=== PATIENT | female | born 1995 | race Caucasian/White ===

== ENCOUNTER → 2021-04-13 | Outpatient (CLI) | payer BC ==
[~2021-04-13] MED LIST: PREN-96 PO
[2021-04-13 11:18] LABS: Basophils # (auto) 0 10 ^3/uL (0-0.2); Basophils % (auto) 0.4 % (0.0-2.0); Eosinophils # (auto) 0.1 10 ^3/uL (0-0.8); Eosinophils % (auto) 0.7 % (0.0-7.0); Hematocrit 38.8 % (36.0-46.0); Hemoglobin 13.3 g/dL (12.2-16.2); Lymphocytes # (auto) 1.3 10 ^3/uL (0.4-5.4); Lymphocytes % (auto) 16.9 % (10.0-50.0); Mean Corpuscular Hemoglobin 32.1 pg (28.0-32.0); Mean Corpuscular Hgb Conc. 34.4 g/dL (32.0-36.0); Mean Corpuscular Volume 93.3 fL (80.0-100.0); Monocytes # (auto) 0.4 10 ^3/uL (0-1.3); Monocytes % (auto) 4.9 % (0.0-12.0); Neutrophils % (auto) 77.1 % (37.0-80.0); Platelet Count (auto) 256 10^3/uL (140-450); Red Blood Cells 4.15 10^6/uL (4.0-5.20); Red Cell Distribution Width 12.4 % (11.8-14.3); White Blood Cell 7.9 10^3/uL (4.4-10.8)
[2021-04-13 11:42] LABS: Alcohol, Urine < 3.0 mg/dL (0-10); Amphetamine Screen, Urine NEGATIVE (NEGATIVE); Barbiturate Scree,Urine NEGATIVE (NEGATIVE); Benzodiazephine Screen, Urine NEGATIVE (NEGATIVE); Cannabinoid Screen, Urine NEGATIVE (NEGATIVE); Cocaine Screen, Urine NEGATIVE (NEGATIVE); Opiate Scree,Urine NEGATIVE (NEGATIVE); Phencyclidine Screen, Urine NEGATIVE (NEGATIVE)
[2021-04-14 05:07] LABS: RPR Non Reactive (Non Reactive)
== END | disposition home or self-care (01) ==
LOC: LAB 10:34
PROVIDERS: ATTEND Obstetrics & Gynecology
DX: Z34.80 Encounter for supervision of other normal pregnancy, unspecified trimester (principal); Z31.430 Encounter of female for testing for genetic disease carrier status for procreative management; Z72.51 High risk heterosexual behavior; Z3A.00 Weeks of gestation of pregnancy not specified
CPT/HCPCS: 36415; 80307; 83036; 84112; 84144; 84702; 85025; 85049; 86592; 86703; 86765; 86850; 86900; 86901; 87086; 87340

== ENCOUNTER 2021-10-24 11:52 | Inpatient (IN) | payer BC ==
[~2021-10-24] VITALS: Ht 175.3 cm; Wt 103.4 kg
[2021-10-24] MEDS ORDERED: miSOPROStol 50 MCG per PRE-CUT 1/2 TAB PO PRN (22:00)
[2021-10-24] MEDS ORDERED: WITCH HAZEL-GLYCERIN PAD TOP PRN (22:00)
[2021-10-24] MEDS ORDERED: LIDOCAINE 2%HCL (LOCAL ANESTH.) INJ 20ML MDV IJ PRN (22:00)
[2021-10-24] MEDS ORDERED: BUTORPHANOL TARTRATE 2 MG/1 ML VIAL IV PRN ×2 (22:00)
[2021-10-24] MEDS ORDERED: DERMOPLAST 60ML BOTTLE TOP PRN (22:00)
[2021-10-24] MEDS ORDERED: PROMETHAZINE HCL 25 MG/ML 1ML IV PRN (22:00)
[2021-10-24] MEDS ORDERED: PHISODERM TOP SOLN 240ML BTL TOP PRN (22:00)
[2021-10-24 23:00] LABS: Basophils # (auto) 0 10 ^3/uL (0-0.2); Basophils % (auto) 0.3 % (0.0-2.0); Eosinophils # (auto) 0.1 10 ^3/uL (0-0.8); Eosinophils % (auto) 0.6 % (0.0-7.0); Hemoglobin 12.4 g/dL (12.2-16.2); Lymphocytes # (auto) 1.7 10 ^3/uL (0.4-5.4); Lymphocytes % (auto) 17.6 % (10.0-50.0); Mean Corpuscular Hemoglobin 31.9 pg (28.0-32.0); Mean Corpuscular Hgb Conc. 34.4 g/dL (32.0-36.0); Mean Corpuscular Volume 92.7 fL (80.0-100.0); Monocytes # (auto) 0.7 10 ^3/uL (0-1.3); Monocytes % (auto) 7.3 % (0.0-12.0); Neutrophils % (auto) 74.2 % (37.0-80.0); Nucleated Red Blood Cells % 0.1 %; Red Blood Cells 3.88 10^6/uL (4.0-5.20); Red Cell Distribution Width 13.9 % (11.8-14.3); White Blood Cell 9.5 10^3/uL (4.4-10.8)
[2021-10-24 23:06] LABS: Urine Blood Negative /uL (Negative); Urine Specific Gravity 1.039 (1.001-1.035)
[2021-10-24 23:07] LABS: Urine Bacteria FEW /hpf (None Seen); Urine Mucus FEW (None Seen); Urine WBC 1 /hpf (0 - 5)
[2021-10-24] MEDS: CLINDAMYCIN 900MG IV 50 ML IV SCH (23:09)
[2021-10-24 23:16] LABS: INR 0.9 (0.9-1.15); Partial Thromboplastin Time 24.7 sec (23.6-33.0)
[2021-10-24 23:23] LABS: Albumin 2.7 g/dL (3.4-5.0); Potassium 4.1 mmol/L (3.5-5.1)
[2021-10-24 23:24] LABS: Alcohol, Urine < 3.0 mg/dL (0-10); Amphetamine Screen, Urine NEGATIVE (NEGATIVE); Barbiturate Scree,Urine NEGATIVE (NEGATIVE); Benzodiazephine Screen, Urine NEGATIVE (NEGATIVE); Cannabinoid Screen, Urine NEGATIVE (NEGATIVE); Cocaine Screen, Urine NEGATIVE (NEGATIVE); Opiate Scree,Urine NEGATIVE (NEGATIVE); Phencyclidine Screen, Urine NEGATIVE (NEGATIVE)
[2021-10-24 23:37] LABS: Bilirubin, Total 0.2 mg/dL (0.2-1.0); Total Protein 6.4 g/dL (6.4-8.2)
[2021-10-25] MEDS: LACTATED RINGER'S 1,000 ML IV SCH ×2 (01:02→08:46)
[2021-10-25] MEDS ORDERED: LACT. RINGERS/OXYTOCIN 20UNITS 1,000 ML IV SCH (01:15)
[2021-10-25] MEDS ORDERED: TERBUTALINE SULFATE 1 MG/ML 1ML VIAL SC PRN (01:15)
[2021-10-25] MEDS ORDERED: LACT. RINGERS/OXYTOCIN 20UNITS 500 ML IV ONE ×2 (01:15→01:45)
[2021-10-25] MEDS ORDERED: fentaNYL CITRATE 100 MCG/2 ML VL IV ONE (04:00)
[2021-10-25] MEDS ORDERED: NALOXONE HCL 0.4 MG/ML VIAL IV ONE (04:00)
[2021-10-25] MEDS ORDERED: LIDOCAINE HCL 2 %PF INJ 10ML AMP IJ ONE (04:00)
[2021-10-25] MEDS ORDERED: ePHEDrine SULFATE 50 MG/ML AMP IV ONE (04:00)
[2021-10-25] MEDS ORDERED: LACTATED RINGER'S 1,000 ML IV ONE (04:00)
[2021-10-25] MEDS ORDERED: ROPIVACAINE HCL 200 ML EPI SCH (04:00)
[2021-10-25] MEDS: CLINDAMYCIN 900MG IV 50 ML IV SCH (06:44)
[2021-10-25] MEDS ORDERED: miSOPROStol 100 mcg TAB SL PRN (07:30)
[2021-10-25] MEDS ORDERED: METHYLERGONOVINE MALEATE 0.2 MG/ML AMP IM PRN (07:30)
[2021-10-25] MEDS ORDERED: miSOPROStol 100 mcg TAB PR PRN (07:30)
[2021-10-25] MEDS ORDERED: ONDANSETRON ODT 4 MG TAB PO PRN (11:00)
[2021-10-25 15:00] VITALS: BP 114/68
[2021-10-25] MEDS: IBUPROFEN 600 MG TAB PO PRN ×2 (16:18→23:34)
[2021-10-25 19:00] VITALS: BP 116/71
[2021-10-25] MEDS: ACETAMINOPHEN 325 MG TAB PO PRN (19:18)
[2021-10-25] MEDS ORDERED: DOCUSATE SOD 100 MG CAP PO SCH (22:00)
[2021-10-25 23:00] VITALS: BP 118/81
[2021-10-26 03:00] VITALS: BP 114/68
[2021-10-26 06:06] LABS: Rubella Antibodies, IgG 1.18 index (Immune >0.99)
[2021-10-26 07:00] VITALS: BP 108/64
[2021-10-26 08:06] LABS: RPR Non Reactive (Non Reactive)
[2021-10-26] MEDS: ACETAMINOPHEN 325 MG TAB PO PRN (08:19)
[2021-10-26 11:30] VITALS: BP 125/77
== END 2021-10-26 12:45 | disposition home or self-care (01) | DRG 807 ==
LOC: LDRP 21:18
PROVIDERS: ADMIT Obstetrics & Gynecology; ATTEND Obstetrics & Gynecology
PROC: 10E0XZZ Delivery of Products of Conception, External Approach (ICD-10-PCS; principal; 2021-10-24)
PROC: 0KQM0ZZ Repair Perineum Muscle, Open Approach (ICD-10-PCS; 2021-10-24)
PROC: 3E0P7VZ Introduction of Hormone into Female Reproductive, Via Natural or Artificial Opening (ICD-10-PCS; 2021-10-24)
PROC: 3E0DXGC Introduction of Other Therapeutic Substance into Mouth and Pharynx, External Approach (ICD-10-PCS; 2021-10-24)
PROC: 3E0R3BZ Introduction of Anesthetic Agent into Spinal Canal, Percutaneous Approach (ICD-10-PCS; 2021-10-24)
PROC: 00HU33Z Insertion of Infusion Device into Spinal Canal, Percutaneous Approach (ICD-10-PCS; 2021-10-24)
DX: O99.824 Streptococcus B carrier state complicating childbirth (principal); Z37.0 Single live birth; Z3A.40 40 weeks gestation of pregnancy; Z20.822 Contact with and (suspected) exposure to COVID-19; Z88.1 Allergy status to other antibiotic agents; Z82.49 Family history of ischemic heart disease and other diseases of the circulatory system; O70.1 Second degree perineal laceration during delivery
CPT/HCPCS: 36415; 59025; 59409; 62282; 80053; 80307; 81001; 81002; 85025; 85610; 85730; 86592; 86762; 86850; 86900; 86901; 87426; 94760; 96360; 96361; 96365; 96366; G0378; J2590; J3490

== ENCOUNTER 2022-05-06 13:24 | Emergency (ER) | payer BC, MEDICAID ==
[2022-05-06 14:16] LABS: Basophils # (auto) 0 10 ^3/uL (0-0.2); Basophils % (auto) 0.6 % (0.0-2.0); Eosinophils # (auto) 0.1 10 ^3/uL (0-0.8); Eosinophils % (auto) 1.1 % (0.0-7.0); Hematocrit 40.8 % (36.0-46.0); Hemoglobin 13.6 g/dL (12.2-16.2); Lymphocytes # (auto) 1.6 10 ^3/uL (0.4-5.4); Lymphocytes % (auto) 20.3 % (10.0-50.0); Mean Corpuscular Hemoglobin 30.2 pg (28.0-32.0); Mean Corpuscular Hgb Conc. 33.2 g/dL (32.0-36.0); Mean Corpuscular Volume 90.8 fL (80.0-100.0); Monocytes # (auto) 0.5 10 ^3/uL (0-1.3); Monocytes % (auto) 6.7 % (0.0-12.0); Neutrophils # (auto) 5.6 10 ^3/uL (1.6-8.6); Neutrophils % (auto) 71.3 % (37.0-80.0); Red Blood Cells 4.49 10^6/uL (4.0-5.20); Red Cell Distribution Width 12.9 % (11.8-14.3); White Blood Cell 7.9 10^3/uL (4.4-10.8)
[2022-05-06 17:32] VITALS: BP 122/65
== END 2022-05-06 17:34 | disposition home or self-care (01) ==
LOC: ER 13:24
DX: O20.8 Other hemorrhage in early pregnancy (principal); Z3A.01 Less than 8 weeks gestation of pregnancy; Z88.1 Allergy status to other antibiotic agents
CPT/HCPCS: 36415; 84702; 85025